=== PATIENT | female | born 1995 | race Hispanic/Latino ===

== ENCOUNTER 2017-11-25 23:38 | Emergency (ER) | payer BC ==
[~2017-11-25] VITALS: Ht 167.6 cm; Wt 105.2 kg
[~2017-11-25 23:38] MED LIST: BENTYL10 MG PO; SYNTHROID125 MCG PO; SYNTHROID137 MCG PO; ZOFRAN ODT4 MG PO
[2017-11-26 02:32] LABS: BILIRUBIN,URINE NEGATIVE (NEGATIVE); CLARITY,URINE SL CLOUDY (CLEAR); COLOR,URINE YELLOW (YELLOW); KETONES,URINE NEGATIVE (NEGATIVE); LEUKOCYTE ESTERASE ,URINE TRACE (NEGATIVE); NITRITE,URINE NEGATIVE (NEGATIVE); PROTEIN,URINE DIPSTICK NEGATIVE (NEGATIVE); URINE UROBILINOGEN 0.2 mg/dL (0.2 - 1)
[2017-11-26 02:44] LABS: BACTERIA,URINE FEW /HPF; EPITHELIAL CELLS,URINE FEW /LPF; RBC,URINE 0-5 /HPF (0-5)
[2017-11-26 02:48] LABS: PREGNANCY TEST, URINE NEGATIVE (NEGATIVE)
--- NOTE | 2017-11-26 04:03 | Diagnostic Imaging Report ---
EXAM: ABDOMEN ACUTE SERIES W/PA CXR DATE: 11/26/2017 12:07 AM Time stamp on exam: 2:53 AM INDICATION: Abdominal pain COMPARISON: None FINDINGS: LINES/TUBES: None BOWEL PATTERN: No evidence for obstruction. SOFT TISSUES: No abnormal calcifications. No mass effect. LUNGS: The lungs are clear. BONES: No acute findings. IMPRESSION: No acute intrathoracic abnormality. No obstructive bowel gas pattern. Signed by: Dr. Darius Zaragoza M.D. on 11/26/2017 4:00 AM
[2017-11-26 04:10] VITALS: BP 109/58
== END 2017-11-26 04:36 | disposition home or self-care (01) ==
LOC: ER 23:38
DX: R10.9 Unspecified abdominal pain (principal); K59.00 Constipation, unspecified; K64.8 Other hemorrhoids
CPT/HCPCS: 74022; 81001; 81025; 99283